=== PATIENT | male | born 2005 | race Caucasian/White ===

== ENCOUNTER 2024-04-20 12:33 | Emergency (ER) | payer OTHER ==
[~2024-04-20] VITALS: Ht 185.4 cm; Wt 114.4 kg
[2024-04-20 12:43] VITALS: BP 128/69; PULSE 76; RESP 18; TEMP 97.7; O2SAT 99
[2024-04-20] MEDS ORDERED: PROM118S5 PO (14:02)
== END 2024-04-20 14:15 | disposition home or self-care (01) ==
LOC: MED 12:33
DX: J06.9 Acute upper respiratory infection, unspecified (principal); Z98.890 Other specified postprocedural states; Z79.899 Other long term (current) drug therapy
CPT/HCPCS: 99283